=== PATIENT | female | born 2000 | race Caucasian/White ===

== ENCOUNTER 2020-02-06 20:35 | Emergency (ER) | payer OTHER ==
[~2020-02-06] VITALS: Ht 154.9 cm; Wt 59.1 kg
[2020-02-06] MEDS ORDERED: TraMADol HCL 50 MG TABLET PO ONE (22:45)
[2020-02-07 00:30] VITALS: BP 119/68
== END 2020-02-07 00:59 | disposition home or self-care (01) ==
LOC: EMS 20:37
DX: H60.92 Unspecified otitis externa, left ear (principal)

== ENCOUNTER 2024-01-07 21:31 | Emergency (ER) | payer OTHER ==
[~2024-01-07] VITALS: Ht 154.9 cm; Wt 61.4 kg
[2024-01-07 21:43] VITALS: BP 147/85; PULSE 81; RESP 16
== END 2024-01-08 00:31 | disposition left against medical advice (07) ==
LOC: EMS 21:32
DX: K08.89 Other specified disorders of teeth and supporting structures (principal); Z53.21 Procedure and treatment not carried out due to patient leaving prior to being seen by health care provider